=== PATIENT | male | born 1980 | race Caucasian/White ===

== ENCOUNTER 2017-11-30 20:35 | Emergency (ER) | payer OTHER ==
[2017-11-30 20:56] VITALS: BP 120/74
[2017-11-30] MEDS ORDERED: Ibuprofen TAB* 400 MG PO ONE (21:01)
--- NOTE | 2017-11-30 21:01 | UC ---
FLU HPI - HPI Summary HPI Summary: Pt presents with fever, body aches, fatigue, and dry cough for the last 2 days. He works at a local [employer] center and says that he interacts with many different people on a daily basis - unsure if anyone in specific was ill. He has taken sushma-seltzer for his symptoms with relief of his fever, but it comes back soon after. Denies sore throat, SOB, chest pain, abdominal pain, n/v/d/c. - History of Current Complaint Chief Complaint: UCRespiratory Stated Complaint: FLU SYMPTOMS Time Seen by Provider: 11/30/17 20:59 Hx Obtained From: Patient Onset/Duration: Sudden Onset Severity Currently: Mild Severity Initially: Mild Pain Intensity: 2 Pain Scale Used: 0-10 Numeric - Allergy/Home Medications Allergies/Adverse Reactions: Allergies Allergy/AdvReac Type Severity Reaction Status Date / Time amoxicillin Allergy Intermediate Rash Verified 11/30/17 20:56 PMH/Surg Hx/FS Hx/Imm Hx Previously Healthy: Yes - Surgical History Surgical History: Yes Surgery Procedure, Year, and Place: appy - Family History Known Family History: Positive: None - Social History Occupation: Employed Full-time Lives: With Family Alcohol Use: Weekly Substance Use Type: None Smoking Status (MU): Never Smoked Tobacco Review of Systems Constitutional: Fever, Fatigue, Other - Body aches Skin: Negative Eyes: Negative ENT: Negative Respiratory: Cough Cardiovascular: Negative Gastrointestinal: Negative Musculoskeletal: Negative Neurological: Negative Psychological: Negative All Other Systems Reviewed And Are Negative: Yes Physical Exam Triage Information Reviewed: Yes Appearance: No Pain Distress, Well-Nourished, Ill-Appearing Vital Signs: Initial Vital Signs Temp 104.8 F 11/30/17 20:52 Pulse 101 11/30/17 20:52 Resp 16 11/30/17 20:52 BP 120/74 11/30/17 20:52 Pulse Ox 98 11/30/17 20:52 Vital Signs Reviewed: Yes Eyes: Positive: Conjunctiva Clear. Negative: Conjunctiva Inflamed, Discharge ENT: Positive: Hearing grossly normal, Pharynx normal, Pharyngeal erythema, TMs normal, Uvula midline. Negative: Nasal congestion, Nasal drainage, TM bulging, TM dull, TM red, Tonsillar swelling, Tonsillar exudate, Hoarse voice, Sinus tenderness Neck: Positive: Supple, Nontender, No Lymphadenopathy Respiratory: Positive: Chest non-tender, Lungs clear, Normal breath sounds, No respiratory distress, No accessory muscle use Cardiovascular: Positive: RRR, No Murmur, Pulses Normal Neurological: Positive: Alert Psychological: Positive: Age Appropriate Behavior Skin: Negative: rashes Flu Course/Dx - Course Course Of Treatment: Flu A positive. Ibuprofen 800mg and Tamiflu 75mg given in clinic tonight. Rx for tamiflu sent to pharmacy. - Differential Dx/Diagnosis Provider Diagnoses: Influenza A Discharge - Discharge Plan Condition: Stable Disposition: HOME Prescriptions: Oseltamivir CAP* [Tamiflu CAP*] 75 mg PO BID #10 cap Patient Education Materials: Influenza (ED) Referrals: No Primary Care Phys,NOPCP [Primary Care Provider] - Additional Instructions: If you develop an increasing fever, shortness of breath, chest pain, new or worsening symptoms - please call your PCP or go to the ED. 1) Rest and drink plenty of fluids! 2) May take 600mg ibuprofen every 6-8 hours as needed for fever and general discomfort. 3) Please call your daughter's hamper maker machine and ask if she should be on a preventative dose of Tamiflu.
[2017-11-30] MEDS ORDERED: Oseltamivir CAP* 75 MG CAP PO ONE (21:31)
== END 2017-11-30 22:02 | disposition home or self-care (01) ==
LOC: UCEAST 20:35
DX: J10.1 Influenza due to other identified influenza virus with other respiratory manifestations (principal)
CPT/HCPCS: 87502; 99212; A9270-GY; G0463